=== PATIENT | male | born 1995 | race African-American/Black ===

== ENCOUNTER → 2018-02-18 | Outpatient (CLI) | payer MEDICAID ==
--- NOTE | 2018-02-18 12:29 | RADIOLOGY REPORT (SQ) ---
EXAM DESCRIPTION: HAND RIGHT 3 VIEWS COMPLETED DATE/TIME: 02/18/2018 12:14 pm REASON FOR STUDY: UNSP INJURY OF RIGHT WRIST, HAND AND FINGER(S), INIT ENCNTR COMPARISON: 2013. NUMBER OF VIEWS: Three views right hand. LIMITATIONS: None. FINDINGS: There is no acute or significant bone, joint or soft tissue abnormality. OTHER: No other significant finding. IMPRESSION: NORMAL STUDY. TECHNICAL DOCUMENTATION: JOB ID: [id number] Reading location - IP/workstation name: [email or web address]
== END ==
LOC: OD 12:02
PROVIDERS: ATTEND Family Medicine
DX: S69.91XA Unspecified injury of right wrist, hand and finger(s), initial encounter (principal); X58.XXXA Exposure to other specified factors, initial encounter; Y93.9 Activity, unspecified; Y92.9 Unspecified place or not applicable

== ENCOUNTER 2018-10-02 11:03 | Emergency (ER) | payer MEDICAID, OTHER ==
--- NOTE | 2018-10-02 11:36 | ER Document Report ---
ED Psych Disorder / Suicide - General Stated Complaint: IVC Time Seen by Provider: 10/02/18 11:31 Primary Care Provider: JANE DARBY DO [Primary Care Provider] - Follow up as needed Notes: Patient brought in by local police after waving a gun at his girlfriend and had himself, saying he wanted to kill himself. He tells me the gun was not loaded. He had depression and anxiety in the past and has been under care of a local physician, but currently not on any medications. He injured his right hand hitting some object. It swollen and abrasions and tender. TRAVEL OUTSIDE OF THE [place] IN LAST 30 DAYS: No - Related Data Allergies/Adverse Reactions: No Known Allergies Allergy (Unverified 10/02/18 16:54) Past Medical History - Social History Smoking Status: Unknown if Ever Smoked Family History: Reviewed & Not Pertinent Psychiatric Medical History: Reports: Hx Anxiety, Hx Depression, Hx Obsessive Compulsive Disorder - Immunizations Immunizations up to date: Yes Hx Diphtheria, Pertussis, Tetanus Vaccination: No Review of Systems - Review of Systems Notes: CONSTITUTIONAL : Denies fever. CARDIOVASCULAR: Denies chest pain. RESPIRATORY: Denies cough, chest congestion, or shortness of breath. GASTROINTESTINAL: Denies abdominal pain or nausea, vomiting, or diarrhea. GENITOURINARY: Denies difficulty or painful urinating, urinary frequency, blood in urine. Painful swelling and abrasions of the right dorsal hand. Physical Exam - Vital signs Vitals: Temp Pulse Resp BP Pulse Ox 98.4 F 92 18 126/70 H 97 10/02/18 11:30 10/02/18 11:30 10/02/18 11:30 10/02/18 11:30 10/02/18 11:30 Interpretation: Normal Notes: PHYSICAL EXAMINATION: GENERAL: Well-appearing, no acute distress. HEAD: Atraumatic, normocephalic. NECK: Normal range of motion, supple. LUNGS: Breath sounds clear and equal bilaterally. HEART: Regular rate and rhythm without murmurs heard. ABDOMEN: Soft, nontender. No guarding or rebound or masses felt. Right hand shows small to moderate amount of soft tissue swelling of the dorsum of the hand. There also some superficial abrasions on the dorsal knuckles of the right hand. Course - Re-evaluation Re-evalutation: 10/02/18 11:36 Routine lab studies will be ordered. Mental health consultation requested. 10/02/18 17:47 X-ray of the patient's hand showed no fractures or dislocations. This is the fourth series of right hand films done on this patient. Radiologist notes what looks to be a tiny sliver of glass, about 4 mm x 2 mm in the dorsal aspect of the hand. Patient has a couple small nicks and breaks in the skin over the dorsal right hand, near the MP joint to the middle finger. I rubbed on both of the spots rather extensively and believe I did remove a tiny foreign body which is likely the piece of glass. Remaining wounds were cleaned and dressed with antibiotic ointment. - Vital Signs Vital signs: Temp Pulse Resp BP Pulse Ox 97.9 F 54 L 22 H 90/60 L 98 10/03/18 09:00 10/03/18 09:00 10/03/18 09:00 10/03/18 09:00 10/03/18 09:00 - Laboratory Result Diagrams: 10/02/18 11:35 10/02/18 11:35 Laboratory results interpreted by me: 10/02/18 10/02/18 10/02/18 11:35 11:35 11:35 Seg Neutrophils % 82.2 H Lymphocytes % 11.8 L Total Bilirubin 1.6 H Albumin 5.1 H Urine Protein 100 H Salicylates < 1.0 L Acetaminophen < 10 L - EKG Interpretation by Mt EKG shows normal: Sinus rhythm Rate: Normal Rhythm: NSR Discharge - Discharge Clinical Impression: Suicidal ideation, Depression, Contusion of right hand, Abrasions and cuts right hand Condition: Stable Disposition: PSYCH HOSP/UNIT Referrals: JANE DARBY DO [Primary Care Provider] - Follow up as needed
[2018-10-02 11:55] LABS: ABSOLUTE LYMPHOCYTES (AUTO) 0.9 10^3/uL (0.5-4.7); ABSOLUTE MONOCYTES (AUTO) 0.4 10^3/uL (0.1-1.4); ABSOLUTE NEUT (AUTO) 6.4 10^3/uL (1.7-8.2); BASOPHILS % (AUTO) 0.5 % (0-2); EOSINOPHILS % (AUTO) 0.2 % (0-6); HEMATOCRIT 46.1 % (37.9-51.0); HEMOGLOBIN 15.5 g/dL (13.5-17.0); LYMPHOCYTES % (AUTO) 11.8 % (13-45); MEAN CORPUSCULAR HGB CONC 33.7 g/dL (32.0-36.0); MEAN CORPUSCULAR VOLUME 89 fl (80-97); MONOCYTES % (AUTO) 5.3 % (3-13); PLATELET COUNT 195 10^3/uL (150-450); RED BLOOD COUNT 5.18 10^6/uL (4.35-5.55); RED CELL DISTRIBUTION WIDTH 12.6 % (11.5-14.0); SEGMENTED NEUTROPHILS % (AUTO) 82.2 % (42-78); TOTAL CELLS COUNTED % (AUTO) 100 %; WHITE BLOOD COUNT 7.8 10^3/uL (4.0-10.5)
[2018-10-02 12:14] LABS: ALANINE AMINOTRANSFERASE 25 U/L (21-72); ALBUMIN 5.1 g/dL (3.5-5.0); ALKALINE PHOSPHATASE 77 U/L (38-126); ANION GAP 9 (5-19); ASPARTATE AMINO TRANSFERASE 28 U/L (17-59); BILIRUBIN,DIRECT 0.2 mg/dL (0.0-0.4); BILIRUBIN,TOTAL 1.6 mg/dL (0.2-1.3); BLOOD UREA NITROGEN 16 mg/dL (7-20); CALCIUM 10.1 mg/dL (8.4-10.2); CARBON DIOXIDE 28 mmol/L (22-30); CHLORIDE 104 mmol/L (98-107); GLUCOSE 94 mg/dL (75-110); POTASSIUM 4.2 mmol/L (3.6-5.0); SODIUM 141.3 mmol/L (137-145); TOTAL PROTEIN 8.1 g/dL (6.3-8.2)
[2018-10-02 12:15] LABS: ACETAMINOPHEN < 10 ug/mL (10-30); ALCOHOL < 10 mg/dL (NONE DETECTED); SALICYLATE < 1.0 mg/dL (2.0-20.0)
[2018-10-02 12:24] LABS: APPEARANCE,URINE SLIGHTLY-CLOUDY; BILIRUBIN,URINE NEGATIVE (NEGATIVE); COLOR,URINE YELLOW; GLUCOSE, URINE NEGATIVE (NEGATIVE); KETONES,URINE NEGATIVE (NEGATIVE); LEUKOCYTE ESTERASE,URINE NEGATIVE (NEGATIVE); NITRITE,URINE NEGATIVE (NEGATIVE); PROTEIN,URINE 100 mg/dL (NEGATIVE); URINE SPECIFIC GRAVITY 1.024; UROBILINOGEN,URINE NEGATIVE mg/dL (<2.0)
--- NOTE | 2018-10-02 12:28 | RADIOLOGY REPORT (SQ) ---
EXAM DESCRIPTION: HAND RIGHT 3 VIEWS COMPLETED DATE/TIME: 10/02/2018 11:56 am REASON FOR STUDY: Hit object with fist, abrasions and swelling hand COMPARISON: Right hand films 02/18/2018 EXAM PARAMETERS: NUMBER OF VIEWS: Three views. TECHNIQUE: AP, lateral and oblique radiographic images acquired of the right hand. LIMITATIONS: None. FINDINGS: MINERALIZATION: Normal. BONES: No acute fracture or dislocation. No worrisome bone lesions. JOINTS: No effusions. SOFT TISSUES: Diffuse dorsal right hand soft tissue swelling is present. On the lateral view, a 4 x 2 mm fragment of glass is present marked with an arrow. OTHER: No other significant finding. IMPRESSION: Diffuse dorsal right hand soft tissue swelling is present. On the lateral view, a 4 x 2 mm fragment of glass is present marked with an arrow. TECHNICAL DOCUMENTATION: JOB ID: [id number] 2099 [employer]- All Rights Reserved Reading location - IP/workstation name: [email or web address]
[2018-10-02 12:38] LABS: URINE AMPHETAMINES SCREEN NEGATIVE; URINE BARBITURATES SCREEN NEGATIVE; URINE BENZODIAZEPINES SCREEN NEGATIVE; URINE COCAINE SCREEN NEGATIVE; URINE MARIJUANA (THC) SCREEN NEGATIVE; URINE METHADONE SCREEN NEGATIVE; URINE PHENCYCLIDINE SCREEN NEGATIVE
[2018-10-02] MEDS ORDERED: ACETAMINOPHEN 325 MG TABLET ONE (16:26)
[2018-10-02] MEDS ORDERED: ACETAMINOPHEN 325 MG TABLET PO ONE (16:29)
--- NOTE | 2018-10-02 16:44 | PSYCHOLOGICAL NOTE ---
Psych Note - Psych Note Date seen by psych provider: 10/02/18 Psych Note: Unspecified bipolar disorder Impression\\plan: Patient brought in by local police after waving a gun at his girlfriend and had himself, saying he wanted to kill himself. Patient continues to identify wanting to because there is "nothing for him here... No purpose." He denies that he held a gun to his girlfriend stating that she saw him with a gun and was trying to get away from him. Patient is recommended for full IVC and placement is currently being sought. Dr. Wyatt was consulted to care management of this patient; attending physicians in agreement with recommendations and disposition.
[2018-10-02] MEDS ORDERED: OLANZAPINE 2.5 MG TABLET PO SCH (18:00)
--- NOTE | 2018-10-02 18:39 | EKG REPORT ---
SEVERITY:- NORMAL ECG - SINUS RHYTHM : Confirmed by: Missy Gonzalez 02-Oct-2018 18:39:18
[2018-10-03 10:17] VITALS: BP 90/60
--- NOTE | 2018-10-03 19:20 | PSYCHOLOGICAL NOTE ---
Psych Note - Psych Note Date seen by psych provider: 10/03/18 Psych Note: Presenting Problem: IVC, HI/SI, threatened gf and self with gun. Diagnosis: 296.80 (F31.9) Unspecified Bipolar and Related Disorder Impression/Plan: Patient accepted to [facility]. Will follow through with that placement. Consulted with Dr. Wyatt regarding the management and care of patient. ED Physician in agreement with recommendations.
== END 2018-10-03 09:30 ==
LOC: ER 11:03
DX: R45.851 Suicidal ideations (principal); S60.221A Contusion of right hand, initial encounter; S60.511A Abrasion of right hand, initial encounter; W22.09XA Striking against other stationary object, initial encounter; F31.9 Bipolar disorder, unspecified
CPT/HCPCS: 93005; 99285; 36415; 80307 ×4; 85025; 80053; 81001; 73130; 93010; J3490

== ENCOUNTER 2018-11-11 10:19 | Emergency (ER) | payer OTHER ==
[2018-11-11 10:28] VITALS: BP 109/71
--- NOTE | 2018-11-11 10:47 | ER Document Report ---
ED Medical Screen (RME) - General Chief Complaint: Suicidal Ideation Stated Complaint: MEDICATION REFILL Time Seen by Provider: 11/11/18 10:34 Primary Care Provider: JANE DARBY DO [Primary Care Provider] - Follow up as needed Notes: HPI: 23-year-old male with a history of depression here for intermittent suicidal ideation without a plan worsening over the last week after he ran out of his Lamictal and Prozac. He was recently discharged from [facility] about a month ago after an attempted/failed suicide attempt with a shotgun when his his girlfriend found him with it and stopped him prior to completing act. He denies any HI, visual/auditory hallucinations. he states he has f/u with [facility] for initiation of psychiatry however he doesn't think he will be able to afford the copay. Denies any pain. He does feel safe at home. He states he is just very stressed out secondary to financial reasons. 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 states when he has his lamictal and prozac his mental status is stable and he doesn't have these thoughts. He denies taking any other medications. No head trauma. denies intoxication. No other complaints at this time. ROS neg to include 10 systems, unless mentioned in the hpi. PE:>>>> PHYSICAL_EXAM: GENERAL_APPEARANCE: well_nourished, alert, cooperative, no_acute_distress, no_obvious_discomfort. pleasant, thin young white male, speaking in full sentences, in no sign of pain or resp distress, VITALS: reviewed, see vital signs table. HEAD: no_swelling\tenderness on the head. normocephalic. atraumatic. no mann signs. no raccoons eyes. EYES: PERRL, EOMI, conjunctiva_clear. NOSE: no_nasal_discharge. MOUTH: (-)decreased moisture. THROAT: no_tonsilar_inflammation, no_airway_obstruction. no_lymphadenopathy NECK: supple, no_neck_tenderness, full rom. full strength. no meningeal signs. BACK: no_back_tenderness. CHEST_WALL: no_chest_tenderness. no overlying skin changes LUNGS: no_wheezing, ctab (-)accessory muscle use, good air exchange bilateral. HEART: normal_rate, normal_rhythm, ABDOMEN: normal_BS, soft, no_abd_tenderness, (-)guarding, (-)rebound, no distension or peritoneal signs. no cva ttp EXTREMITIES: strength 5/5 in all_extremities, good pulses in all_extremities, no_swelling\tenderness in the extremities, no_edema. full rom. normal gait. good pulses. brisk cap refill. good hand counter waitress/waiter. NEURO: motor and sensation intact, SKIN: warm, dry, good_color, no_rash. MENTAL_STATUS: speech_clear, oriented_X_3, somewhat sad/flat_affect, responds_appropriately to questions. MDM: I have ordered labs and initial work-up and patient will be transferred to the main ER for further work-up. I have greeted and performed a rapid initial assessment of this patient. A comprehensive ED assessment and evaluation of the patient, analysis of test results and completion of medical decision making process will be conducted by an additional ED providers. Documentation achieved through voice recording which my lead to some occasional accidental typographical errors. Extensive efforts have been made to proof read documentation to make sure these are the least as possible Temp Pulse Resp BP Pulse Ox 11/11/18 10:25 98.5 F 79 13 109/71 96 Category Date Time Status EKG Documentation STAT Care 11/11/18 10:39 Active Vital Signs (ED) Q4H Care 11/11/18 10:38 Active Consult Documentation [RC] KSENIA Cons 11/11/18 10:39 Active Physician [CONS] Stat Cons 11/11/18 10:38 Ordered ACETAMINOPHEN [CHEM] Stat Lab 11/11/18 10:38 Ordered ALCOHOL [CHEM] Stat Lab 11/11/18 10:38 Ordered CBC WITH DIFF [HEME] Stat Lab 11/11/18 10:38 Ordered COMPREHENSIVE METABOLIC PANEL [CHEM] Stat Lab 11/11/18 10:38 Ordered SALICYLATE [CHEM] Stat Lab 11/11/18 10:38 Ordered URINALYSIS [URIN] Stat Lab 11/11/18 10:38 Uncollected URINE DRUG SCREEN [CHEM] Stat Lab 11/11/18 10:38 Uncollected EKG ER ONLY [ER] Stat Oth 11/11/18 10:38 Ordered TRAVEL OUTSIDE OF THE [place] IN LAST 30 DAYS: No - Related Data Allergies/Adverse Reactions: risperidone [From Risperdal] Allergy (Verified 11/11/18 10:20) Past Medical History Renal/ Medical History: Denies: Hx Peritoneal Dialysis Psychiatric Medical History: Reports: Hx Anxiety, Hx Depression, Hx Obsessive Compulsive Disorder Past Surgical History: Reports: Hx Appendectomy - Immunizations Immunizations up to date: Yes Hx Diphtheria, Pertussis, Tetanus Vaccination: No Physical Exam - Vital signs Vitals: Temp Pulse Resp BP Pulse Ox 98.5 F 79 13 109/71 96 11/11/18 10:25 11/11/18 10:25 11/11/18 10:25 11/11/18 10:25 11/11/18 10:25 Course - Vital Signs Vital signs: Temp Pulse Resp BP Pulse Ox 98.5 F 79 13 109/71 96 11/11/18 10:25 11/11/18 10:25 11/11/18 10:25 11/11/18 10:25 11/11/18 10:25 Doctor's Discharge - Discharge Referrals: JANE DARBY DO [Primary Care Provider] - Follow up as needed
[2018-11-11 11:08] LABS: ABSOLUTE BASOPHILS # (AUTO) 0.1 10^3/uL (0.0-0.2); ABSOLUTE LYMPHOCYTES (AUTO) 1.7 10^3/uL (0.5-4.7); ABSOLUTE MONOCYTES (AUTO) 0.5 10^3/uL (0.1-1.4); ABSOLUTE NEUT (AUTO) 3.9 10^3/uL (1.7-8.2); BASOPHILS % (AUTO) 0.9 % (0-2); EOSINOPHILS % (AUTO) 0.6 % (0-6); HEMATOCRIT 44.3 % (37.9-51.0); LYMPHOCYTES % (AUTO) 27.1 % (13-45); MEAN CORPUSCULAR HEMOGLOBIN 30.5 pg (27.0-33.4); MEAN CORPUSCULAR HGB CONC 33.9 g/dL (32.0-36.0); MEAN CORPUSCULAR VOLUME 90 fl (80-97); MONOCYTES % (AUTO) 8.2 % (3-13); PLATELET COUNT 198 10^3/uL (150-450); RED BLOOD COUNT 4.92 10^6/uL (4.35-5.55); RED CELL DISTRIBUTION WIDTH 12.8 % (11.5-14.0); SEGMENTED NEUTROPHILS % (AUTO) 63.2 % (42-78); TOTAL CELLS COUNTED % (AUTO) 100 %; WHITE BLOOD COUNT 6.2 10^3/uL (4.0-10.5)
--- NOTE | 2018-11-11 11:16 | ER Document Report ---
ED Psych Disorder / Suicide <ESTEFANIDANO - Last Filed: 11/11/18 12:12> - General TRAVEL OUTSIDE OF THE [place] IN LAST 30 DAYS: No <KARINA ASH - Last Filed: 11/11/18 12:29> - General Chief Complaint: Suicidal Ideation Stated Complaint: MEDICATION REFILL Time Seen by Provider: 11/11/18 10:34 Primary Care Provider: [facility] [Outside] - Follow up as needed [facility] [Outside] - 11/17/18 8:00 am ([facility] 11/14/18 therapy 11/17/18 at 0800 medication management) JANE DARBY DO [Primary Care Provider] - Follow up as needed Notes: 3-year-old male with a history of depression here for intermittent suicidal ideation without a plan worsening over the last week after he ran out of his Lamictal and Prozac. He was recently discharged from [facility] about a month ago after an attempted/failed suicide attempt with a shotgun when his his girlfriend found him with it and stopped him prior to completing act. He denies any HI, visual/auditory hallucinations. he states he has f/u with [facility] for in itiation of psychiatry however he doesn't think he will be able to afford the copay. Denies any pain. He does feel safe at home. He states he is just very stressed out secondary to financial reasons. 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 states when he has his lamictal and pr ozac his mental status is stable and he doesn't have these thoughts. He denies taking any other medications. No head trauma. denies intoxication. No other complaints at this time. (KARINA ASH) - Related Data Allergies/Adverse Reactions: risperidone [From Risperdal] Allergy (Verified 11/11/18 10:20) Past Medical History - Social History Smoking Status: Unknown if Ever Smoked Family History: Reviewed & Not Pertinent Patient has suicidal ideation: No Patient has homicidal ideation: No Renal/ Medical History: Denies: Hx Peritoneal Dialysis Psychiatric Medical History: Reports: Hx Anxiety, Hx Depression, Hx Obsessive Compulsive Disorder Past Surgical History: Reports: Hx Appendectomy - Immunizations Immunizations up to date: Yes Hx Diphtheria, Pertussis, Tetanus Vaccination: No <KARINA ASH E - Last Filed: 11/11/18 12:29> Review of Systems - Review of Systems -: Yes ROS unobtainable due to patient's medical condition Constitutional: No symptoms reported Cardiovascular: No symptoms reported Respiratory: No symptoms reported Gastrointestinal: No symptoms reported Genitourinary: No symptoms reported Neurological/Psychological: Suicidal ideation. denies: Hallucinations, Headaches <KARINA ASH E - Last Filed: 11/11/18 12:29> Physical Exam <KARINA ASH E - Last Filed: 11/11/18 12:29> - Vital signs Vitals: Temp Pulse Resp BP Pulse Ox 98.5 F 79 13 109/71 96 11/11/18 10:25 11/11/18 10:25 11/11/18 10:25 11/11/18 10:25 11/11/18 10:25 - Notes Notes: GENERAL_APPEARANCE: well_nourished, alert, cooperative, no_acute_distress, no_obvious_discomfort. VITALS: reviewed, see vital signs table. HEAD: no_swelling\\tenderness on the head. EYES: PERRL, EOMI, conjunctiva_clear. NOSE: no_nasal_discharge. MOUTH: (-)decreased moisture. THROAT: no_tonsilar_inflammation, no_airway_obstruction. no_lymphadenopathy NECK: supple, no_neck_tenderness, (-)thyromegaly. BACK: no_back_tenderness. CHEST_WALL: no_chest_tenderness. LUNGS: no_wheezing, no_rales, no_rhonchi, (-)accessory muscle use, good air exchange bilateral. HEART: normal_rate, normal_rhythm, normal_S1, normal_S2, (-)S3, (-)S4, no_murmur, no_rub. ABDOMEN: normal_BS, soft, no_abd_tenderness, (-)guarding, (-)rebound, no_organomegaly, no_abd_masses. EXTREMITIES: good pulses in all_extremities, no_swelling\\tenderness in the extremities, no_edema. SKIN: warm, dry, good_color, no_rash. MENTAL_STATUS: speech_clear, oriented_X_3, normal_affect, responds_appropriately to questions. PSYCH: Patient does admit to suicidal thoughts but has no specific organized plan denies homicidal ideation denies visual auditory hallucinations patient see ms to have reasonable remote memory and judgment. Understands he needs to have his medications back. (KARINA ASH) Course - Laboratory Result Diagrams: 11/11/18 11:04 11/11/18 11:04 <DANO JARA - Last Filed: 11/11/18 12:12> - Laboratory Result Diagrams: 11/11/18 11:04 11/11/18 11:04 <KARINA ASH - Last Filed: 11/11/18 12:29> - Re-evaluation Re-evalutation: 11/11/18 11:15 Patient presents with suicidal ideation with no specific plan the patient is fairly reasonable he has no organized thoughts or plan about suicide he is is having thoughts. He wants to be back on his Prozac and Lamictal. He states if he is gets back on his medicine he feels that he would do just fine. We will medically clear him and speak with psychiatry. 11/11/18 12:26 Patient's bilirubin was mildly elevated but he has no abdominal pain. This may be an incidental finding. Spoke with him about jaundice. Psychiatry is saw the patient do recommend refilling his medicines I will do that he has an appointment in 6 days. (KARINA ASH) - Vital Signs Vital signs: Temp Pulse Resp BP Pulse Ox 98.5 F 79 13 109/71 96 11/11/18 10:25 11/11/18 10:25 11/11/18 10:25 11/11/18 10:25 11/11/18 10:25 - Laboratory Laboratory results interpreted by me: 11/11/18 11:04 Total Bilirubin 2.1 H Salicylates < 1.0 L Acetaminophen < 10 L Discharge <DANO JARA - Last Filed: 11/11/18 12:12> <KARINA ASH - Last Filed: 11/11/18 12:29> - Discharge Clinical Impression: Passive suicidal ideations, Bipolar 1 disorder, depressed, mild, Has run out of medications Condition: Stable Disposition: HOME, SELF-CARE Additional Instructions: You have been evaluated by both medical and behavioral health providers while in the emergency department. You have been cleared from both acute medical and psychiatric services. You reported being out of your medications for a week and having passive SI. You have been provided a 6 day prescription for both medications, should take them as directed and follow up with your already scheduled appointment [facility]. DEPRESSION: Your evaluation reveals that you have mental depression. While symptoms may be vague, they often include disturbance of sleep, fatigue, loss of appetite, and general loss of interest in life. While depression may be a side effect of drugs, or a reaction to a major change in your life, many cases have no known cause. If depression is acute, and related to a major loss in your life, you can expect it to clear completely with time. If you have been depressed a long time, are prone to repeated bouts of depression or low mood, or have been thinking of suicide, get help. Depression can be treated with anti-depressant medication and counselling. Long-term depression will often take a few weeks to clear, even with appropriate medication. Follow-up care is important. SUICIDAL IDEATION: Suicidal ideation is a common medical term for thoughts about suicide, which may be as detailed as a formulated plan, without the suicidal act itself. Although most people who undergo suicidal ideation do not commit suicide, some go on to make suicide attempts. The range of suicidal ideation varies greatly from fleeting to detailed planning, role playing, and unsuccessful attempts. While thoughts about suicide are common, most people do not carry out serious actions to commit suicide. Based upon your evaluation and discussion with you, we do not believe you are currently at risk to act upon your thoughts of suicide. You have agreed to return to the Emergency Department, at any time, if you feel inclined to act upon your suicidal thoughts. Bipolar Disorder Bipolar disorder is also called manic-depressive disorder. Depression alternates with brain hyperactivity called glen. Each phase lasts from several days to a few weeks. We don't know exactly what causes bipolar disorder, but it's treatable. During the "manic phase," you may feel elated and energetic. You may have racing thoughts, rapid speech, increased activity, and grandiose ideas. During this time, you may not realize how poor your judgement is. Inappropriate spendi ng, drug abuse, excessive alcohol use, marriage problems, and irresponsible sexual behavior are common during the manic phase. During the "depressive phase," you might feel depressed, guilty, worthless, fatigued, and unable to concentrate. You might have thoughts of suicide. Good treatments are available for bipolar disorder. [place] is a classic drug for bipolar disorder, and is still often useful. If the manic phase is very mild, an antidepressant alone can be prescribed. If the manic phase is very severe, an antipsychotic medicine (such as Haldol) may be needed. The treatment must be matched to your symptoms, so it's important to work closely with your psychiatric care provider. Contact your physician, the hospital emergency center, crisis line, or your counsellor if you are losing control or having self-destructive thoughts. FOLLOW-UP CARE: You have been provided prescriptions for your home medications of Lamictal 50MG daily and Prozac 40MG daily. You should take these as directed. Confirmed with [facility] you have therapy appointment on 11/14/18 and medication management on 11/17/18 at 0800. You are only being provided a 6 day prescripti ons so make sure you attend your scheduled appointments. You have also been provided the [facility] Mobile Crisis number for crisis, talk therapy and linkage to other services/supports. If you experience worsening or a significant change in your symptoms, notify the physician immediately, utilize mobile crisis or return to the Emergency Department at any time for re- evaluation. Prescriptions: Fluoxetine HCl [Prozac] 40 mg PO DAILY #7 capsule Lamotrigine [Lamictal] 50 mg PO DAILY #7 tablet Referrals: JANE DARBY DO [Primary Care Provider] - Follow up as needed [facility] [Outside] - Follow up as needed [facility] [Outside] - 11/17/18 8:00 am ([facility] 11/14/18 therapy 11/17/18 at 0800 medication management)
[2018-11-11 11:35] LABS: ALKALINE PHOSPHATASE 81 U/L (38-126); ANION GAP 9 (5-19); ASPARTATE AMINO TRANSFERASE 35 U/L (17-59); BILIRUBIN,DIRECT 0.2 mg/dL (0.0-0.4); BILIRUBIN,TOTAL 2.1 mg/dL (0.2-1.3); BLOOD UREA NITROGEN 15 mg/dL (7-20); CALCIUM 10.2 mg/dL (8.4-10.2); CARBON DIOXIDE 30 mmol/L (22-30); CHLORIDE 103 mmol/L (98-107); GLUCOSE 91 mg/dL (75-110); POTASSIUM 4.8 mmol/L (3.6-5.0); TOTAL PROTEIN 7.9 g/dL (6.3-8.2)
[2018-11-11 11:37] LABS: ACETAMINOPHEN < 10 ug/mL (10-30); ALCOHOL < 10 mg/dL (NONE DETECTED); SALICYLATE < 1.0 mg/dL (2.0-20.0)
--- NOTE | 2018-11-11 12:07 | PSYCHOLOGICAL NOTE ---
Psych Note - Psych Note Date seen by psych provider: 11/11/18 Time seen by psych provider: 10:46 - Chart review 1046. Evaluation from 1143- 1151. Confirmation with [facility] regarding outpatient appointments at 1156. Psych Note: Presenting Problem: Medication refill, out of Lamictal 50MG QD and Prozac 40MG QD x 1 week that [facility] prescribed from his hospitalization 10/03/18 (seen by [facility] due to SI and holding a shot gun), follow up with [facility] 11/17/18, had passive SI thoughts last night/general thoughts of not wanting to be alive, he denied current SI, denied any firearms being in the home since the shotgun was confiscated as a result of previous ED visit. Patient alert and oriented x5 with linear thoughts, able to carry on dialogue conversation and no observed psychosis. Confirmed with [facility] (spoke to Jasmyne) patient has therapy appointment 11/14/18 and medication management 11/17/18 at 0800. Diagnosis: Out of medication x 1 week Passive SI last night, none today 296.51 (F31.31) Bipolar I Disorder, Current or Most Recent Episode Depressed, Mild Medication recommendations made by the psychiatric medication provider, Jacquelyn Herrera MD., includes: Provide scripts for Lamictal 50MG daily for mood stabilization Prozac 40MG daily for depression Impression/Plan: Patient is cleared from acute psychiatric services.
[2018-11-11 12:35] LABS: APPEARANCE,URINE CLEAR; BILIRUBIN,URINE NEGATIVE (NEGATIVE); COLOR,URINE YELLOW; GLUCOSE, URINE NEGATIVE (NEGATIVE); KETONES,URINE TRACE mg/dL (NEGATIVE); LEUKOCYTE ESTERASE,URINE NEGATIVE (NEGATIVE); NITRITE,URINE NEGATIVE (NEGATIVE); PROTEIN,URINE NEGATIVE (NEGATIVE); URINE SPECIFIC GRAVITY 1.026
[2018-11-11 12:53] LABS: URINE AMPHETAMINES SCREEN NEGATIVE; URINE BARBITURATES SCREEN NEGATIVE; URINE BENZODIAZEPINES SCREEN NEGATIVE; URINE COCAINE SCREEN NEGATIVE; URINE MARIJUANA (THC) SCREEN NEGATIVE; URINE METHADONE SCREEN NEGATIVE; URINE PHENCYCLIDINE SCREEN NEGATIVE
--- NOTE | 2018-11-12 14:52 | EKG REPORT ---
SEVERITY:- OTHERWISE NORMAL ECG - SINUS ARRHYTHMIA, RATE 51-76 : Confirmed by: Missy Gonzalez 12-Nov-2018 14:51:18
== END 2018-11-11 12:37 | disposition home or self-care (01) ==
LOC: ER 10:19
DX: F31.9 Bipolar disorder, unspecified (principal); R45.851 Suicidal ideations; Z59.9 Problem related to housing and economic circumstances, unspecified; R79.89 Other specified abnormal findings of blood chemistry; Z59.8 Other problems related to housing and economic circumstances
CPT/HCPCS: 36415; 80053; 80307; 81001; 85025; 93005; 93010; 99284

== ENCOUNTER 2019-09-27 11:49 | Emergency (ER) | payer SELFPAY ==
[2019-09-27 12:13] LABS: ABSOLUTE BASOPHILS # (AUTO) 0.1 10^3/uL (0.0-0.2); ABSOLUTE EOSINOPHILS # (AUTO) 0.1 10^3/uL (0.0-0.6); ABSOLUTE LYMPHOCYTES (AUTO) 1.4 10^3/uL (0.5-4.7); ABSOLUTE MONOCYTES (AUTO) 0.4 10^3/uL (0.1-1.4); ABSOLUTE NEUT (AUTO) 3.4 10^3/uL (1.7-8.2); BASOPHILS % (AUTO) 1.1 % (0-2); EOSINOPHILS % (AUTO) 1.4 % (0-6); HEMATOCRIT 42.9 % (37.9-51.0); HEMOGLOBIN 14.6 g/dL (13.5-17.0); LYMPHOCYTES % (AUTO) 25.8 % (13-45); MEAN CORPUSCULAR HEMOGLOBIN 30.6 pg (27.0-33.4); MEAN CORPUSCULAR VOLUME 90 fl (80-97); MONOCYTES % (AUTO) 7.8 % (3-13); PLATELET COUNT 190 10^3/uL (150-450); RED BLOOD COUNT 4.77 10^6/uL (4.35-5.55); RED CELL DISTRIBUTION WIDTH 12.9 % (11.5-14.0); SEGMENTED NEUTROPHILS % (AUTO) 63.9 % (42-78); TOTAL CELLS COUNTED % (AUTO) 100 %; WHITE BLOOD COUNT 5.3 10^3/uL (4.0-10.5)
[2019-09-27] MEDS ORDERED: DIPH/PERTUSS(ACELL)/TETANUS VAC/PF 0.5 ML SYR (>=10YO) IM ONE (12:19)
[2019-09-27 12:29] LABS: ALBUMIN 4.7 g/dL (3.5-5.0); ALKALINE PHOSPHATASE 59 U/L (38-126); ANION GAP 8 (5-19); ASPARTATE AMINO TRANSFERASE 31 U/L (17-59); BILIRUBIN,TOTAL 2.2 mg/dL (0.2-1.3); BLOOD UREA NITROGEN 16 mg/dL (7-20); CALCIUM 9.6 mg/dL (8.4-10.2); CARBON DIOXIDE 23 mmol/L (22-30); CHLORIDE 107 mmol/L (98-107); GLUCOSE 129 mg/dL (75-110); POTASSIUM 3.8 mmol/L (3.6-5.0); TOTAL PROTEIN 7.4 g/dL (6.3-8.2)
--- NOTE | 2019-09-27 12:29 | ER Document Report ---
ED General - General Chief Complaint: Suicidal Ideation Stated Complaint: SUICIDAL IDEATION Time Seen by Provider: 09/27/19 12:08 Primary Care Provider: JANE DARBY DO [NO LOCAL MD] - Follow up as needed TRAVEL OUTSIDE OF THE [place] IN LAST 30 DAYS: No - HPI Notes: Chief complaint: Suicide attempt by hanging History of present illness: 24-year-old male with history of bipolar 1 disorder with multiple prior suicide attempts was found hanging from a tree in front yard of family home by his family members having used an electrical wire to try to hang himself. They cut them down immediately reporting that he was initially unresponsive but gradually spontaneously regained consciousness. EMS was called. On arrival they noted that he was alert and fully oriented with abrasions over the neck area and slight hoarseness. His vital signs in the field were stable he was transported directly here. Patient reports he has been off of his antidepressant medications for some time. He expresses ongoing suicidal intent. He denies auditory visual hallucinations. He denies current abuse of drugs or alcohol. He denies any homicidal ideation. Last tetanus booster is unknown. - Related Data Allergies/Adverse Reactions: risperidone [From Risperdal] Allergy (Verified 11/11/18 10:20) Past Medical History - General Information source: Patient - Social History Smoking Status: Former Smoker Chew tobacco use (# tins/day): No Frequency of alcohol use: Social Drug Abuse: None Lives with: Family Family History: Reviewed & Not Pertinent Renal/ Medical History: Denies: Hx Peritoneal Dialysis Psychiatric Medical History: Reports: Hx Anxiety, Hx Bipolar Disorder, Hx Depression, Hx Obsessive Compulsive Disorder, Other - Multiple prior suicide attempts Past Surgical History: Reports: Hx Appendectomy - Immunizations Immunizations up to date: Yes Hx Diphtheria, Pertussis, Tetanus Vaccination: No Review of Systems - Review of Systems Notes: Constitutional: Negative for fever. HENT: Negative for sore throat. Eyes: Negative for visual changes. Cardiovascular: Negative for chest pain. Respiratory: Negative for shortness of breath. Gastrointestinal: Negative for abdominal pain, vomiting or diarrhea. Genitourinary: Negative for dysuria. Musculoskeletal: Negative for back pain. Skin: Negative for rash. Neurological: Negative for headaches, weakness or numbness. 10 point ROS negative except as marked above and in HPI. Physical Exam - Vital signs Vitals: Temp Pulse Resp BP Pulse Ox 98.2 F 85 16 115/57 L 99 09/27/19 11:49 09/27/19 11:49 09/27/19 11:49 09/27/19 11:49 09/27/19 11:49 - Notes Notes: GENERAL: Male patient of approximately stated age who is mildly hoarse but otherwise appearing in no acute distress. SKIN: Good turgor no rashes. HEAD: Normocephalic. Multiple superficial abrasions over the facial area. EYES: PERRLA. EOMI. Conjunctivae and sclerae clear. EARS: CANALS AND TMS CLEAR. NOSE: CLEAR. MOUTH: Moist mucosa. Good dentition. No stridor or edema. No drooling. NECK: Multiple transverse superficial abrasions over the anterior aspect of the neck with some mild associated soft tissue swelling and tenderness. There is no crepitus. Trachea is midline. No masses or thyromegaly. No adenopathy. Carotids 2+ without bruits. No JVD. BACK: Symmetrical without tenderness. CHEST: Respirations unlabored. Breath sounds clear and symmetrical. HEART: Regular rhythm. No murmur gallop or rub. ABDOMEN: Soft nontender without masses, organomegaly or rebound. Bowel sounds normally active. No bruits. GENITALIA: Deferred. EXTREMITIES: No edema. No calf tenderness. Cap refill less than 1.5 seconds. Dorsalis pedis and posterior tibial pulses 3+ and symmetrical. NEUROLOGICAL: GCS 15. Alert and oriented x3. Fluent speech. Cranial nerves II through XII intact. Sensorimotor and cerebellar normal. Normal tone. PSYCHIATRIC: Flat affect. Course - Re-evaluation Re-evalutation: 09/27/19 12:31 Patient is placed on IVC status upon arrival here. Vital signs are stable he is awake alert and oriented. He has some mild hoarseness and otherwise no indication of acute airway issues. I placed him in a c-collar for protection of the C-spine and we are going to obtain CT images of his neck with contrast to rule out fracture or vascular injury. His EKG shows no acute changes. We have ordered diagnostic studies including a CBC, comprehensive metabolic profile acetaminophen and salicylate levels and urinalysis and urine tox screen. I have also ordered a chest x-ray. 09/27/19 15:10 Patient has remained clinically stable. Neck CT was negative. Chest x-ray normal. Chemistry profile and CBC unremarkable. Troponin normal. EKG shows early repolarization only. Patient has been cleared clinically from the c- collar. We are still awaiting a urine specimen for drug screening. His alcohol was less than 10. I feel patient has been cleared medically and he remains on IVC and will be seen by Behavioral Health Team in anticipation of transfer to an inpatient psychiatric bed. - Vital Signs Vital signs: Temp Pulse Resp BP Pulse Ox 98.2 F 85 16 115/57 L 99 09/27/19 11:49 09/27/19 11:49 09/27/19 11:49 09/27/19 11:49 09/27/19 11:49 - Laboratory Result Diagrams: 09/27/19 12:00 09/27/19 12:00 Laboratory results interpreted by me: 09/27/19 12:00 Glucose 129 H Total Bilirubin 2.2 H Salicylates < 1.0 L Acetaminophen < 10 L - Diagnostic Test Radiology reviewed: Reports reviewed - Per radiologist: Normal chest x-ray. Normal CT soft tissue neck. - EKG Interpretation by Me Additional EKG results interpreted by me: 09/27/19 12:29 Twelve-lead EKG from 1213 hrs. is reviewed contemporaneously by me showing normal sinus rhythm with a rate of 62 normal intervals and a normal QRS axis of +10 degrees. Patient is noted to have an early repolarization pattern. No other acute findings are present. Indication: Trauma. Discharge - Discharge Clinical Impression: Suicide attempt by hanging, Bipolar 1 disorder Condition: Stable Disposition: PSYCH HOSP/UNIT Referrals: JANE DARBY DO [NO LOCAL MD] - Follow up as needed
[2019-09-27 12:30] LABS: ACETAMINOPHEN < 10 ug/mL (10-30); ALCOHOL < 10 mg/dL (NONE DETECTED); SALICYLATE < 1.0 mg/dL (2.0-20.0)
[2019-09-27] MEDS ORDERED: ONDANSETRON HCL INJ/PF 4 MG/2 ML SDV IV ONE (12:45)
--- NOTE | 2019-09-27 13:02 | RADIOLOGY REPORT (SQ) ---
EXAM DESCRIPTION: CHEST SINGLE VIEW IMAGES COMPLETED DATE/TIME: 09/27/2019 11:40 am REASON FOR STUDY: trauma. COMPARISON: None. EXAM PARAMETERS: NUMBER OF VIEWS: One view. TECHNIQUE: Single frontal radiographic view of the chest acquired. RADIATION DOSE: NA LIMITATIONS: None. FINDINGS: LUNGS AND PLEURA: No opacities, masses or pneumothorax. No pleural effusion. MEDIASTINUM AND HILAR STRUCTURES: No masses. Contour normal. HEART AND VASCULAR STRUCTURES: Heart normal in size. Normal vasculature. BONES: No acute findings. HARDWARE: None in the chest. OTHER: No other significant finding. IMPRESSION: NO ACUTE RADIOGRAPHIC FINDING IN THE CHEST. TECHNICAL DOCUMENTATION: JOB ID: [id number] 2010 [email or web address]- All Rights Reserved Reading location - IP/workstation name: [id number]
--- NOTE | 2019-09-27 14:25 | RADIOLOGY REPORT (SQ) ---
EXAM DESCRIPTION: CT SOFT TISSUE NECK WITH IMAGES COMPLETED DATE/TIME: 09/27/2019 1:02 pm REASON FOR STUDY: trauma COMPARISON: None. TECHNIQUE: Post IV contrasted scanning from skull base through lung apices with review of bone, soft tissue and lung windows. Reconstructed coronal and sagittal MPR images reviewed. All images stored on PACS. All CT scanners at this facility use dose modulation, iterative reconstruction, and/or weight based d osing when appropriate to reduce radiation dose to as low as reasonably achievable (ALARA). [facility]: Dose Right [facility]: CareDose [facility]: Dose Right [facility]: Teradose 4D [facility]: Ensa CONTRAST TYPE AND DOSE: contrast/concentration: Isovue 350.00 mmol/ml; Total Contrast Delivered: 75. 0 ml; Total Saline Delivered: 55.0 ml RENAL FUNCTION: GFR > 60. RADIATION DOSE: CT Rad equipment meets quality standard of care and radiation dose reduction techniq ues were employed. CTDIvol: 18.9 mGy. DLP: 510 mGy-cm. . LIMITATIONS: None. FINDINGS: SKULL BASE: Intact. MAJOR SALIVARY GLANDS: No solid or cystic masses. No inflammatory changes. LYMPHADENOPATHY: No adenopathy. MUCOSAL MASSES OR ASYMMETRY: No mucosal masses or asymmetry. LARYNX/CORDS: No abnormal findings. VASCULAR STRUCTURES: The major vessels are patent. No stenosis or evidence of injury. LUNG APICES: Clear. BONES: Intact. THYROID: Normal size. No masses. PARANASAL SINUSES: Clear. OTHER: No other significant finding. IMPRESSION: NO SIGNIFICANT FINDING IN THE SOFT TISSUES OF THE NECK. TECHNICAL DOCUMENTATION: JOB ID: [id number] Quality ID # [id number]: Final reports with documentation of one or more dose reduction techniques (e.g., Au tomated exposure control, adjustment of the mA and/or kV according to patient size, use of iterative reconstruction technique) 2010 [employer]- All Rights Reserved Reading location - IP/workstation name: [email or web address]
[2019-09-27] MEDS ORDERED: NORMAL SALINE 1000 ML 1,000 ML IV ONE (15:08)
[2019-09-27 17:39] LABS: APPEARANCE,URINE CLEAR; BILIRUBIN,URINE NEGATIVE (NEGATIVE); COLOR,URINE YELLOW; GLUCOSE, URINE NEGATIVE (NEGATIVE); KETONES,URINE TRACE mg/dL (NEGATIVE); LEUKOCYTE ESTERASE,URINE NEGATIVE (NEGATIVE); NITRITE,URINE NEGATIVE (NEGATIVE); PROTEIN,URINE 100 mg/dL (NEGATIVE); UROBILINOGEN,URINE NEGATIVE mg/dL (<2.0)
[2019-09-27 17:40] LABS: URINE SPECIFIC GRAVITY > 1.060
[2019-09-27 17:49] LABS: URINE AMPHETAMINES SCREEN NEGATIVE; URINE BARBITURATES SCREEN NEGATIVE; URINE BENZODIAZEPINES SCREEN NEGATIVE; URINE COCAINE SCREEN NEGATIVE; URINE MARIJUANA (THC) SCREEN NEGATIVE; URINE METHADONE SCREEN NEGATIVE; URINE PHENCYCLIDINE SCREEN NEGATIVE
--- NOTE | 2019-09-27 18:41 | EKG REPORT ---
SEVERITY:- NORMAL ECG - SINUS RHYTHM ST ELEV, PROBABLE NORMAL EARLY REPOL PATTERN : Confirmed by: Missy Gonzalez 27-Sep-2019 18:40:19
[2019-09-27] MEDS ORDERED: KETOROLAC TROMETHAMINE INJ/PF 30 MG/1 ML SDV IV ONE (23:16)
[2019-09-28] MEDS ORDERED: ACETAMINOPHEN 325 MG TABLET PO ONE ×2 (14:46→22:33)
--- NOTE | 2019-09-28 22:36 | ER Document Report ---
Doctor's Note Notes: 09/28/19 22:35 Patient is presently going to [facility] [place] for psych inpatient treatment. He requested Tylenol before going for sore throat. He is stable he is alert oriented he understands where he is going. He is being transported by the Molecular Physicist's department. There are no acute medical problems at this time and he is cleared to go to [facility].
[2019-09-28 22:40] VITALS: BP 136/45
--- NOTE | 2019-09-29 07:36 | PSYCHOLOGICAL NOTE ---
Psych Note - Psych Note Date seen by psych provider: 09/28/19 Time seen by psych provider: 17:23 - [id number] talked with patient and cassidy. [id number] informed father of plan of care. Psych Note: Patient is a 24 year old male who presented to the ED yesterday afternoon via EMS for suicide attempt via hanging self. He and his fiance had discord. She left the home and when returned found him in the back yard hanging by a cable from a tree, had to cut him down and he was unresponsive. He has davis around his neck from the cable and some difficulty talking but able to. He was subsequently put on FULL IVC and placement efforts began last evening. Continued those placement efforts today. [facility]. Will move forward with that placement. Patient made aware of plan of care. He gave verbal consent to inform his fiance Liza ([phone]) and his father Juaquin ([phone]). Patient's father called in earlier in the afternoon to check in and patient was informed he could call father back but chose not to. He stated his mother is to know nothing and commented if she calls back "just hang up." Both fiance and father notified. Patient had been concerned with a therapy session on Saturday that he said is court ordered. Dandy stated "I have spoke to [facility] already, they are aware of crisis, and the appointment has been cancelled."
--- NOTE | 2019-10-19 17:34 | PSYCHOLOGICAL NOTE ---
Psych Note - Psych Note Date seen by psych provider: 09/27/19 Time seen by psych provider: 14:00 Psych Note: Reason for Consult: Suicide attempt Patient presented to [facility] ED via EMS after attempting to hang himself. He reports he got into an argument with his girlfriend and after she left he hung himself. He reports he has attempt to harm himself in the past and can not state he is glad he failed to kill himself. Patient is noted to have difficulty talking and there is a observable fei from hanging himself. Patient does not full engage with clinician; however, does shorty answer questions. Impression/Plan: Patient is recommended for IVC. Patient presented after true suicide attempt. Observable fei on patient's neck and he is having difficulties with talking. He has a history of self harm and suicide attempts. Patient has been accepted to [facility] and transportation has been requested. Dr. Wyatt was consulted on the care and management of this patient; attending physician is in agreement with recommendations and disposition.
== END 2019-09-28 22:28 ==
LOC: ER 11:49
DX: S10.91XA Abrasion of unspecified part of neck, initial encounter (principal); F31.9 Bipolar disorder, unspecified; X83.8XXA Intentional self-harm by other specified means, initial encounter; Y92.007 Garden or yard of unspecified non-institutional (private) residence as the place of occurrence of the external cause; Z91.5 Personal history of self-harm; Z88.8 Allergy status to other drugs, medicaments and biological substances; Z87.891 Personal history of nicotine dependence; Z20.828 Contact with and (suspected) exposure to other viral communicable diseases
CPT/HCPCS: 93005; 99285; 96361; 96374; 96375; 36415; 80307 ×4; 85025; 87635; 80053; 81001; 84484; 71045; 70491; 90715; 93010; J1885; J2405; J7030; C9803

== ENCOUNTER 2019-11-04 21:08 | Emergency (ER) | payer SELFPAY ==
[2019-11-04 21:18] VITALS: BP 134/73
== END 2019-11-05 02:09 | disposition left against medical advice (07) ==
LOC: ER 21:08
DX: Z53.21 Procedure and treatment not carried out due to patient leaving prior to being seen by health care provider (principal)